=== PATIENT | male | born 1990 | race Caucasian/White ===

== ENCOUNTER 2019-04-01 12:25 | Emergency (ER) | payer SELFPAY ==
[~2019-04-01] VITALS: Ht 182.9 cm; Wt 90.9 kg
[2019-04-01 13:07] VITALS: Ht 182.9 cm; Wt 90.9 kg
[2019-04-01 13:58] LABS: ALBUMIN 4.2 g/dL (3.4-5.0); ALKALINE PHOSPHATASE 69 U/L (46-116); ALT (SGPT) 26 U/L (10-68); BASOPHILS 0.2 % (0-2); BILIRUBIN - TOTAL 0.36 mg/dL (0.2-1.3); CALC OSMOLALITY 277 mosm/kg (275-300); CALCIUM 8.7 mg/dL (8.5-10.1); CARBON DIOXIDE 27.1 mmol/L (21.0-32.0); CHLORIDE - SERUM 102 mmol/L (98-107); EOSINOPHILS 0.7 % (0-7); GLUCOSE 116 mg/dL (74-106); HEMOGLOBIN 15.1 g/dL (13.5-17.5); IMMATURE GRANULOCYTES 0.3 % (0-5); LYMPHOCYTES 7.9 % (15-50); MCH 30.6 pg (26.0-34.0); MCHC 35.1 g/dL (31.0-37.0); MCV 87.2 fL (80.0-100.0); MONOCYTES 4.3 % (2-11); NEUTROPHILS 86.6 % (40-80); POTASSIUM - SERUM 3.9 mmol/L (3.5-5.1); PROTEIN - SERUM 7.7 g/dL (6.4-8.2); RBC 4.93 10x6/uL (4.20-6.10); RDW 12.4 % (11.5-14.5); SODIUM 140 mmol/L (136-145); UREA NITROGEN 7 mg/dL (7-18); WBC 15.7 10x3/uL (4.8-10.8); eGFR NON AFRICAN AMERICAN > 90 mL/min (90-120)
[2019-04-01 14:07] LABS: PLATELET COUNT 304 10x3/uL (130-400)
[2019-04-01 14:38] LABS: AMYLASE - SERUM 61 U/L (25-115); LIPASE 308 U/L (73-393)
[2019-04-01] MEDS ORDERED: CARAFATE1 G PO (15:40)
[2019-04-01] MEDS ORDERED: PROTONIX40 MG PO (15:40)
[2019-04-01 16:00] VITALS: BP 107/75
== END 2019-04-01 16:00 | disposition home or self-care (01) ==
LOC: D.ER 12:25
PROVIDERS: Family Medicine
DX: K29.70 Gastritis, unspecified, without bleeding (principal); F10.10 Alcohol abuse, uncomplicated

== ENCOUNTER 2019-04-01 17:47 | Emergency (ER) | payer SELFPAY ==
[~2019-04-01] VITALS: Ht 182.9 cm; Wt 90.9 kg
[~2019-04-01 17:47] MED LIST: CARAFATE1 G PO; PROTONIX40 MG PO
[2019-04-01 18:06] VITALS: Ht 182.9 cm; Wt 90.9 kg
[2019-04-01 18:58] LABS: BASOPHILS 0.3 % (0-2); EOSINOPHILS 0.3 % (0-7); HEMATOCRIT 42.1 % (42.0-54.0); HEMOGLOBIN 14.8 g/dL (13.5-17.5); IMMATURE GRANULOCYTES 0.3 % (0-5); LYMPHOCYTES 17.4 % (15-50); MCH 30.4 pg (26.0-34.0); MCHC 35.2 g/dL (31.0-37.0); MCV 86.4 fL (80.0-100.0); MEAN PLATELET VOLUME 10.1 fL (7.4-10.4); MONOCYTES 6.8 % (2-11); NEUTROPHILS 74.9 % (40-80); PLATELET COUNT 299 10x3/uL (130-400); RBC 4.87 10x6/uL (4.20-6.10); RDW 12.4 % (11.5-14.5)
[2019-04-01 19:11] LABS: WBC 11.2 10x3/uL (4.8-10.8)
[2019-04-02 02:24] VITALS: BP 100/70
== END 2019-04-02 02:25 | disposition other institution (70) ==
LOC: D.ER 17:47
PROVIDERS: Family Medicine
DX: K92.2 Gastrointestinal hemorrhage, unspecified (principal)